=== PATIENT | female | born 1980 | race Two or more races ===

== ENCOUNTER → 2017-04-10 | Outpatient (CLI) | payer OTHER ==
--- NOTE | 2017-04-10 12:13 | REP ---
Clinical: Acute pain. Technique: Internal rotation, external rotation, and Y view of the left shoulder. Findings: No acute fracture dislocation. No significant osteoarthritic degenerative changes. Small calcifications overlying the greater tuberosity suggests calcific tendonitis. Impression: Calcific tendonitis likely involving the supraspinatus tendon. Signed by Carroll Redd MD 04/10/2017 12:04 P
== END ==
LOC: M LRY 11:45
PROVIDERS: ATTEND Physician Assistant
DX: M25.512 Pain in left shoulder (principal)